=== PATIENT | male | born 1975 | race Caucasian/White ===

== ENCOUNTER 2020-11-14 15:03 | Inpatient (IN) | payer MEDICAID ==
[~2020-11-14] VITALS: Ht 185.4 cm; Wt 102.1 kg
[2020-11-14 17:18] VITALS: BP_SYST 142; BP_SYST 162; BP_DIAS 88
[2020-11-14] MEDS ORDERED: OLAN10TA74 PO (19:21)
[2020-11-14] MEDS ORDERED: OLAN5TAB52 PO (19:21)
[2020-11-14] MEDS ORDERED: AMLO-258 PO (19:21)
[2020-11-14] MEDS ORDERED: EMTR1TAB15 PO (19:21)
[2020-11-14] MEDS: ZOLPIDEM TARTRATE 10 MG TABLET PO PRN (20:08)
[2020-11-14] MEDS: LORazepam 2 MG TABLET PO PRN (20:08)
[2020-11-15 04:56] VITALS: BP 136/82
[2020-11-15 07:18] LABS: BASOPHILS % (AUTO) 0.3 % (0.0-2.0); EOSINOPHILS % (AUTO) 7.1 % (1.0-6.0); HEMATOCRIT 41.1 % (41-53); HEMOGLOBIN 13.8 g/dL (13.5-17.5); LYMPHOCYTES # (AUTO) 1.6 K/uL (1.0-4.8); LYMPHOCYTES % (AUTO) 25.1 % (22.0-44.0); MEAN CORPUSCULAR HEMOGLOBIN 29.1 pg (26.0-34.0); MEAN CORPUSCULAR HGB CONC 33.7 G/dL (31.0-37.0); MEAN CORPUSCULAR VOLUME 87 fL (80-100); MONOCYTES # (AUTO) 0.4 K/uL (0.1-1.0); MONOCYTES % (AUTO) 5.9 % (2.0-9.0); NEUTROPHILS # (AUTO) 3.8 K/uL (1.8-7.7); NEUTROPHILS % (AUTO) 61.6 % (40.0-70.0); PLATELET COUNT (AUTO) 255 K/uL (150-450); RED BLOOD CELL COUNT(AUTO) 4.75 MIL/uL (4.50-5.90); RED CELL DISTRIBUTION WIDTH 13.5 % (11.5-14.5)
[2020-11-15 07:57] LABS: ALANINE AMINOTRANSFERASE 40 U/L (12-78); ALBUMIN 4.2 g/dL (3.4-5.0); ALKALINE PHOSPHATASE 87 U/L (46-116); ANION GAP 4 mmol/L (8-16); ASPARTATE AMINOTRANSFERASE 16 U/L (15-37); BILIRUBIN,TOTAL 0.7 mg/dL (0.1-1.0); CALCIUM, TOTAL 9.2 mg/dL (8.8-10.5); CARBON DIOXIDE 31 mmol/L (22-29); CHLORIDE 103 mmol/L (98-107); CHOL/HDL RATIO 3.2 (4.2-7.3); CHOLESTEROL 181 mg/dL (131-200); CREATININE 0.73 mg/dL (0.60-1.30); FREE T4 (FREE THYROXINE) 0.83 ng/dL (0.76-1.46); GLOMERULAR FILTR. RATE CALC > 60 mL/min (>60); GLUCOSE,RANDOM 104 mg/dL (70-110); HDL CHOLESTEROL 57 mg/dL (40-60); LDL CHOL (CALC.) 115 mg/dL (0-130); POTASSIUM 4.3 mmol/L (3.5-5.1); SODIUM SERUM 138 mmol/L (136-145); THYROID STIMULATING HORMONE 1.17 uIU/mL (0.36-3.74); TOTAL PROTEIN, SERUM 7.2 g/dL (6.4-8.2); TRIGLYCERIDES 44 mg/dL (15-150); UREA NITROGEN, BLOOD 15 mg/dL (7-18)
[2020-11-15] MEDS: AmLODIPine BESYLATE 10 MG TABLET PO SCH (08:18)
[2020-11-15] MEDS: HALOPERIDOL 5 MG TABLET PO PRN ×2 (08:18→17:40)
[2020-11-15] MEDS: LORazepam 2 MG TABLET PO PRN ×2 (08:18→17:40)
[2020-11-15 08:19] VITALS: BP 148/85
[2020-11-15] MEDS ORDERED: PETROLATUM,WHITE 28 GM JELLY TP PRN (15:45)
[2020-11-15] MEDS ORDERED: DOCUSATE SODIUM 100 MG CAPSULE PO PRN (15:45)
[2020-11-15] MEDS ORDERED: OMEPRAZOLE 20 MG CAPSULE PO PRN (15:45)
[2020-11-15] MEDS ORDERED: MAG HYDROX/AL HYDROX/SIMETH ES 30 ML SUSPENSION UDCUP PO PRN (15:45)
[2020-11-15] MEDS ORDERED: ONDANSETRON HCL 4 MG TABLET PO PRN (15:45)
[2020-11-15] MEDS ORDERED: IBUPROFEN 600 MG TABLET PO PRN (15:45)
[2020-11-15] MEDS ORDERED: ACETAMINOPHEN 325 MG TABLET PO PRN (15:45)
[2020-11-15] MEDS ORDERED: BENZOCAINE/MENTHOL LOZENGE PO PRN (15:45)
[2020-11-15] MEDS ORDERED: CloNIDine HCL 0.1 MG TABLET PO PRN (15:45)
[2020-11-15] MEDS ORDERED: BACITRACIN 28 GM OINTMENT TP PRN (15:45)
[2020-11-15] MEDS ORDERED: LOPERAMIDE HCL 2 MG CAPSULE PO PRN (15:45)
[2020-11-15] MEDS ORDERED: MAGNESIUM HYDROXIDE SUSPENSION 30 ML UDCUP PO PRN (15:45)
[2020-11-15 16:06] VITALS: BP 121/66
[2020-11-15] MEDS: ZOLPIDEM TARTRATE 10 MG TABLET PO PRN (20:57)
[2020-11-16 03:55] VITALS: BP 132/97
[2020-11-16 08:06] VITALS: BP 123/76
[2020-11-16] MEDS: AmLODIPine BESYLATE 10 MG TABLET PO SCH (08:26)
[2020-11-16] MEDS: LORazepam 2 MG TABLET PO PRN (12:46)
[2020-11-16] MEDS: HALOPERIDOL 5 MG TABLET PO PRN (12:47)
[2020-11-16] MEDS: ALBUTEROL SULFATE HFA 90 MCG/PUFF 8 GM INHALER IH PRN (18:07)
[2020-11-16 20:22] VITALS: BP 125/79
[2020-11-16] MEDS ORDERED: OLANZapine 10 MG TABLET PO SCH (21:00)
[2020-11-17 00:07] VITALS: BP 129/82
[2020-11-17] MEDS: ALBUTEROL SULFATE HFA 90 MCG/PUFF 8 GM INHALER IH PRN (01:49)
[2020-11-17] MEDS: LORazepam 2 MG TABLET PO PRN ×2 (04:52→08:55)
[2020-11-17 08:14] VITALS: BP 121/68
[2020-11-17] MEDS: AmLODIPine BESYLATE 10 MG TABLET PO SCH (08:55)
[2020-11-17] MEDS ORDERED: OLAN10TA74 PO (10:05)
== END 2020-11-17 13:37 | disposition home or self-care (01) | DRG 750 ==
LOC: B3A 16:45
PROVIDERS: ADMIT Psychiatry & Neurology Psychiatry; ATTEND Psychiatry & Neurology Psychiatry
DX: F25.9 Schizoaffective disorder, unspecified (principal); R45.851 Suicidal ideations; F41.9 Anxiety disorder, unspecified; F32.9 Major depressive disorder, single episode, unspecified; I10 Essential (primary) hypertension; G47.00 Insomnia, unspecified; K59.00 Constipation, unspecified; F19.10 Other psychoactive substance abuse, uncomplicated
CPT/HCPCS: 80053; 80061; 83036; 84439; 84443; 85025; 86592; J3535